=== PATIENT | female | born 1975 | race Caucasian/White ===

== ENCOUNTER 2019-12-25 10:58 | Outpatient (CLI) | payer OTHER, SELFPAY ==
--- NOTE | 2019-12-25 11:07 | MM_ITS ---
WS: [id number] BILATERAL SCREENING DIGITAL MAMMOGRAM WITH CAD HISTORY: SCREENING COMPARISON: 11/22/2016 and 11/11/2015 Bilateral CC and MLO views submitted. Computer aided detection analyzed. Breast composition: The breasts are heterogeneously dense, which may obscure small masses. No suspici ous masses, microcalcifications or architectural distortion. MM/[id number] IMPRESSION: BI-RADS: 1-Negative FOLLOW UP: 1 Year Follow-up
== END 2019-12-25 10:59 | disposition home or self-care (01) ==
LOC: RADSHAW 11:03
PROVIDERS: Visit Provider Family Medicine
DX: Z12.31 Encounter for screening mammogram for malignant neoplasm of breast (principal)
CPT/HCPCS: 77067

== ENCOUNTER 2020-12-24 11:15 | Outpatient (CLI) | payer OTHER, SELFPAY ==
--- NOTE | 2020-12-24 11:20 | MM_ITS ---
WS: [id number] Bilateral screening digital mammogram, 12/24/2020 Clinical Data: SCREENING Comparison: 12/25/2019, 11/22/2016, 11/11/2015, 07/10/2014 Findings: The breast parenchymal pattern shows heterogeneous density No spiculated masses or clustered calcific ations are seen. There are no secondary signs of carcinoma. There are lymph nodes in both axilla. MM/[id number] Impression: 1. Negative bilateral mammogram unchanged. 2. Recommend annual screening mammograms. BIRADS: 1-Negative FOLLOW UP: 1 Year Follow-up The CAD rechecker was used.
== END 2020-12-24 11:16 | disposition home or self-care (01) ==
LOC: RADSHAW 11:19
PROVIDERS: Visit Provider Nurse Practitioner Family
DX: Z12.31 Encounter for screening mammogram for malignant neoplasm of breast (principal)
CPT/HCPCS: 77067

== ENCOUNTER 2022-01-10 10:05 | Outpatient (CLI) | payer OTHER, SELFPAY ==
--- NOTE | 2022-01-10 10:12 | MM_ITS ---
WS: [id number] BILATERAL SCREENING DIGITAL TOMOSYNTHESIS MAMMOGRAM WITH CAD HISTORY: SCREENING COMPARISON: 12/24/2020 and 12/25/2019 Bilateral CC and MLO views with tomosynthesis and synthetic mammography submitted. Computer aided det ection analyzed. Breast composition: The breasts are heterogeneously dense, which may obscure small masses. No suspici ous masses, microcalcifications or architectural distortion. MM/[id number] IMPRESSION: BI-RADS: 1-Negative FOLLOW UP: 1 Year Follow-up
== END 2022-01-10 10:06 | disposition home or self-care (01) ==
LOC: RAD 10:07
PROVIDERS: Visit Provider Nurse Practitioner Family
DX: Z12.31 Encounter for screening mammogram for malignant neoplasm of breast (principal)
CPT/HCPCS: 77063; 77067

== ENCOUNTER → 2023-09-06 12:26 | Outpatient (BNVA) | payer OTHER, SELFPAY | PROVIDERS: Visit Provider Internal Medicine Cardiovascular Disease | DX: R00.2 Palpitations (principal); I49.1 Atrial premature depolarization; I49.3 Ventricular premature depolarization; R00.0 Tachycardia, unspecified | CPT/HCPCS: 93242 ==

== ENCOUNTER 2023-10-02 15:00 | Outpatient (CLI) | payer OTHER, SELFPAY ==
--- NOTE | 2023-10-02 15:09 | USCV_ITS ---
Mary Jane Womack Age: 48 Gender: F : 1975 Exam Date: 10/02/2023 15:13 Ordering Phys: Juju Braxton Technologist: SKIP Exam Location: [facility] [place] Indication: LE Pain Risk Factors: Previous Vascular Surgery: RIGHT LEFT BP: 132.0 / 84.00 BP: 132.0/ 80.00 0 0 Waveform Velocity (cm/s) Velocity (cm/s) Waveform Triphasic 185.7 Iliac Prox 140.8 Triphasic Triphasic 153.0 Iliac Mid 132.1 Triphasic Triphasic 143.1 Iliac Distal 119.6 Triphasic Triphasic 128.0 DRY CHAIN OFFBEARER 139.0 Triphasic Triphasic 127.0 SFA Prox 147.0 Triphasic Triphasic 144.0 SFA Mid 143.0 Triphasic Triphasic SFA Dist Triphasic 88.0 94.0 Triphasic 56.0 POP 59.0 Triphasic Triphasic 62.0 CHEMISTRY TEACHER 72.0 Triphasic Triphasic 61.0 DPA 55.0 Triphasic 1.0 MENDY 1.0 FINDINGS Normal arterial Doppler waveforms and velocities. No unstable plaques or lesions noted. Resting MENDY of 1.0 bilaterally CONCLUSIONS 1. Normal resting ABIs bilaterally, suggesting no significant arterial obstruction 2. No unstable plaques or lesions noted in the arteries Dr Gay Cash MD [facility] (Electronically Signed) Final Date: 03 October 2023 08:18 S
== END 2023-10-02 15:01 | disposition home or self-care (01) ==
LOC: RAD 15:02
PROVIDERS: PCP Nurse Practitioner Family; Visit Provider Nurse Practitioner Family
DX: M79.604 Pain in right leg (principal); M79.605 Pain in left leg
CPT/HCPCS: 93925

== ENCOUNTER → 2024-03-07 16:17 | Outpatient (BNVA) | payer OTHER, SELFPAY | PROVIDERS: PCP Nurse Practitioner Family; Referring Provider Nurse Practitioner Family; Visit Provider Internal Medicine Cardiovascular Disease | DX: I49.8 Other specified cardiac arrhythmias (principal); R07.9 Chest pain, unspecified | CPT/HCPCS: 93005 ==

== ENCOUNTER → 2024-04-11 14:52 | Outpatient (BNVA) | payer OTHER, SELFPAY | PROVIDERS: PCP Nurse Practitioner Family; Visit Provider Nurse Practitioner Women's Health | DX: Z12.4 Encounter for screening for malignant neoplasm of cervix (principal) | CPT/HCPCS: 87624 ==

== ENCOUNTER 2024-05-28 10:16 | Outpatient (CLI) | payer OTHER, SELFPAY ==
--- NOTE | 2024-05-28 10:20 | MM_ITS ---
WS: [id number] BILATERAL 3D TOMOSYNTHESIS DIGITAL SCREENING MAMMOGRAPHY WITH CAD CLINICAL INFORMATION: SCREENING HISTORY: Screening mammogram. No current complaints. COMPARISON: 2021 TECHNIQUE: Bilateral CC and MLO views. FINDINGS: The breasts are composed of heterogeneous fibroglandular density tissue, which can limit the detectio n of small underlying mass lesions. No suspicious mass, asymmetry, calcifications, or architectural d istortion. No evidence of malignancy. MM/MM [facility] tomosynthesis [id number] IMPRESSION: DENSITY: The breasts are heterogeneously dense, which may obscure small masses. BI-RADS: 1 - Negative FOLLOW UP: 1 Year Follow-up Recommend return to annual screening mammography.
== END 2024-05-28 10:17 | disposition home or self-care (01) ==
LOC: RAD 10:16
PROVIDERS: PCP Nurse Practitioner Family; Visit Provider Nurse Practitioner Women's Health
DX: Z12.31 Encounter for screening mammogram for malignant neoplasm of breast (principal); R92.333 Mammographic heterogeneous density, bilateral breasts
CPT/HCPCS: 77063; 77067